=== PATIENT | female | born 1940 | race Caucasian/White ===

== ENCOUNTER → 2017-10-19 | Outpatient (CLI) | payer MEDICARE ==
[~2017-10-19] MED LIST: ATOR20TA9 PO; BENA5TAB3 PO; CYCL-259 PO; LEVO112T4 PO; LEVO88TA4 PO; NAPR-758 PO; NAPR220C2 PO; PANT40TA5 PO; [UNRECOGNIZED DRUG - CODE] PO
[2017-10-19 11:50] LABS: BASOPHILS # (AUTO) 0.03 x10^3/uL (0-0.1); BASOPHILS % (AUTO) 1 % (0-1); EOSINOPHILS # (AUTO) 0.19 x10^3/uL (0-0.4); EOSINOPHILS % (AUTO) 3 % (1-7); LYMPHOCYTES # (AUTO) 1.05 x10^3/uL (1-3.4); LYMPHOCYTES % (AUTO) 19 % (22-44); MD NO; MEAN CORPUSCULAR HEMOGLOBIN 32.3 pg (27.0-34.8); MEAN CORPUSCULAR HGB CONC 34.5 g/dL (32.4-35.8); MEAN CORPUSCULAR VOLUME 93.6 fL (80-100); MEAN PLATELET VOLUME 9.8 fL (7.4-10.4); MONOCYTES % (AUTO) 11 % (2-9); NEUTROPHILS # (AUTO) 3.83 x10^3/uL (1.8-6.8); NEUTROPHILS % (AUTO) 67 % (42-75); PLATELET COUNT 175 x10^3/uL (130-400); RED BLOOD COUNT 4.57 x10^6/uL (3.82-5.3); RED CELL DISTRIBUTION WIDTH 12.6 % (9.6-15.2)
[2017-10-19 11:52] LABS: MICROSCOPIC NOT IND
[2017-10-19 12:02] LABS: ALANINE AMINOTRANSFERASE 22 U/L (12-78); ALBUMIN 3.9 g/dL (3.4-5.0); ANION GAP 8 mmol/L (5-15); CALCIUM 9.3 mg/dL (8.5-10.1); CHLORIDE 106 mmol/L (98-107)
[2017-10-19 12:04] LABS: ALKALINE PHOSPHATASE 78 U/L (45-117); BILIRUBIN,TOTAL 0.5 mg/dL (0.2-1.0); CREATININE 0.99 mg/dL (0.55-1.02); TOTAL PROTEIN 7.4 g/dL (6.4-8.2)
[2017-10-19 12:09] LABS: CULTURE INDICATED? NO
== END | disposition home or self-care (01) ==
LOC: STAR 10:24
PROVIDERS: ATTEND Orthopaedic Surgery
DX: Z01.818 Encounter for other preprocedural examination (principal); M16.12 Unilateral primary osteoarthritis, left hip; I25.2 Old myocardial infarction
CPT/HCPCS: 36415; 80053; 81003; 85025; 87081; 93005

== ENCOUNTER 2017-10-29 05:32 | Inpatient (IN) | payer MEDICARE ==
[2017-10-19 15:07] VITALS: BP 130/72
[~2017-10-29] VITALS: Ht 160 cm; Wt 74.9 kg
[2017-10-29] MEDS ORDERED: LACTATED RINGERS 1,000 ML IV SCH (06:07)
[2017-10-29] MEDS ORDERED: AMOX875T PO (06:11)
[2017-10-29] MEDS ORDERED: TRANEXAMIC ACID 100 MG/ML, 10ML ONE ×2 (06:26)
[2017-10-29] MEDS ORDERED: ROPIvacaine/PF 0.2%, 20 ML ONE (06:26)
[2017-10-29] MEDS ORDERED: SODIUM CHLORIDE 0.9% 100 ML ONE (06:27)
[2017-10-29] MEDS ORDERED: VANCOMYCIN 1,000 MG ONE (06:27)
[2017-10-29] MEDS ORDERED: EPINEPHRINE 1 MG/ML, 1ML ONE (06:27)
[2017-10-29] MEDS ORDERED: LIDOCAINE-MPF 1%, 2ML INFIL ONE (06:30)
[2017-10-29] MEDS ORDERED: MIDAZOLAM 1 MG/ML, 2ML ONE (06:51)
[2017-10-29] MEDS ORDERED: FENTANYL PF 100 MCG/2ML ONE ×2 (06:51→08:58)
[2017-10-29] MEDS ORDERED: PROPOFOL 10 MG/ML, 20ML ONE (07:07)
[2017-10-29] MEDS ORDERED: ROCURONIUM 10MG/ML,5ML ONE (07:07)
[2017-10-29] MEDS ORDERED: DEXAMETHASONE 4 MG/ML, 1ML ONE ×2 (07:07)
[2017-10-29] MEDS ORDERED: LIDOCAINE 2% 100MG/5ML SYRINGE ONE (07:07)
[2017-10-29] MEDS ORDERED: FENTANYL PF 250 MCG/5ML ONE (07:24)
[2017-10-29] MEDS ORDERED: KETOROLAC 30 MG/1 ML ONE (07:34)
[2017-10-29] MEDS ORDERED: OXYcodone 5 MG/5 ML ORAL.SOL UDC PO PRN (08:00)
[2017-10-29] MEDS ORDERED: MEPERIDINE/PF 25MG/0.5ML IVPush PRN (08:00)
[2017-10-29] MEDS ORDERED: LABETALOL 5MG/ML, 20ML IV PRN (08:00)
[2017-10-29] MEDS ORDERED: PROMETHAZINE 25 MG/ML, 1ML IV PRN (08:00)
[2017-10-29] MEDS ORDERED: HALOPERIDOL 5 MG/ML IV PRN (08:00)
[2017-10-29] MEDS ORDERED: ACETAMINOPHEN 325 MG TABLET PO PRN (08:00)
[2017-10-29] MEDS ORDERED: hydrALAzine 20 MG/ML, 1ML IV PRN (08:00)
[2017-10-29] MEDS: D5%-0.45% NACL 1,000 ML IV SCH ×2 (08:44→20:08)
[2017-10-29] MEDS ORDERED: ACETAMINOPHEN 650 MG/20.3 ML UDC ONE (08:58)
[2017-10-29] MEDS ORDERED: OXYcodone 5 MG/5 ML ORAL.SOL UDC ONE (08:58)
[2017-10-29] MEDS: ACETAMINOPHEN 650 MG/20.3 ML UDC PO SCH ×4 (09:00→21:42)
[2017-10-29] MEDS ORDERED: PROMETHAZINE 12.5 MG SUPP PR PRN (09:00)
[2017-10-29] MEDS ORDERED: DIPHENHYDRAMINE 50 MG CAPSULE PO PRN (09:00)
[2017-10-29] MEDS ORDERED: ALUMINUM/MAG/SIMETHICONE 30 ML UDC PO PRN (09:00)
[2017-10-29] MEDS ORDERED: MAGNESIUM HYDROXIDE 8%, 30ML UDC PO PRN (09:00)
[2017-10-29] MEDS: DOCUSATE 100 MG CAPSULE PO SCH ×2 (09:00→21:42)
[2017-10-29] MEDS ORDERED: PROMETHAZINE 25 MG/ML, 1ML IM PRN (09:00)
[2017-10-29] MEDS ORDERED: DIAZEPAM 5 MG TABLET PO PRN (09:00)
[2017-10-29] MEDS ORDERED: ZOLPIDEM 5MG TABLET PO PRN (09:00)
[2017-10-29] MEDS: BENAZEPRIL 5 MG TABLET PO SCH (09:00)
[2017-10-29] MEDS ORDERED: OXYcodone IR 5MG TABLET PO PRN (09:00)
[2017-10-29] MEDS: FENTANYL PF 100 MCG/2ML IV PRN ×3 (09:00→09:12)
[2017-10-29] MEDS ORDERED: ONDANSETRON 2MG/ML, 2ML IV PRN (09:00)
[2017-10-29] MEDS ORDERED: HYDROmorphone 1 MG/ML, 1ML IV PRN (09:00)
[2017-10-29] MEDS ORDERED: SENNA/DOCUSATE TABLET PO PRN (09:00)
[2017-10-29] MEDS ORDERED: BISACODYL 10 MG SUPP PR PRN (09:00)
[2017-10-29] MEDS: MULTIVITAMINS/MINERALS TABLET PO SCH (09:00)
[2017-10-29] MEDS ORDERED: ONDANSETRON 4 MG TABLET PO PRN (09:00)
[2017-10-29] MEDS ORDERED: TRANEXAMIC ACID 1,000 MG in SODIUM CHLORIDE 0.9% 100 ML IVPB ONE ×2 (09:15→09:30)
[2017-10-29] MEDS ORDERED: HYDROmorphone 2 MG/ML, 1ML ONE (09:22)
[2017-10-29] MEDS: HYDROmorphone 1 MG/ML, 1ML IV PRN ×2 (09:24→09:31)
[2017-10-29] MEDS ORDERED: HALOPERIDOL 5 MG/ML ONE (09:42)
[2017-10-29 13:03] VITALS: BP 115/69
[2017-10-29] MEDS: CEFAZOLIN 2,000 MG in SODIUM CHLORIDE 0.9% 50 ML IVPB SCH ×2 (15:28→23:49)
[2017-10-29] MEDS ORDERED: PHENYLEPHRINE 10 MG/ML ONE (16:19)
[2017-10-29] MEDS ORDERED: ONDANSETRON 2MG/ML, 2ML ONE (16:19)
[2017-10-29] MEDS ORDERED: CEFAZOLIN 1,000 MG ONE (16:19)
[2017-10-29] MEDS: ASPIRIN 81 MG TABLET EC PO SCH (17:51)
[2017-10-29 20:00] VITALS: BP 125/69
[2017-10-29] MEDS: CYCLOBENZAPRINE 10 MG TABLET PO PRN (20:06)
[2017-10-29] MEDS ORDERED: ATORVASTATIN 20 MG TABLET PO SCH (21:00)
[2017-10-29 23:34] VITALS: BP 134/70
[2017-10-30] MEDS: CEFAZOLIN 2,000 MG in SODIUM CHLORIDE 0.9% 50 ML IVPB SCH (00:27)
[2017-10-30] MEDS: ACETAMINOPHEN 650 MG/20.3 ML UDC PO SCH ×2 (02:52→06:47)
[2017-10-30] MEDS: CYCLOBENZAPRINE 10 MG TABLET PO PRN (02:54)
[2017-10-30 03:19] VITALS: BP 121/72
[2017-10-30] MEDS: D5%-0.45% NACL 1,000 ML IV SCH (03:30)
[2017-10-30] MEDS: ASPIRIN 81 MG TABLET EC PO SCH (05:49)
[2017-10-30] MEDS ORDERED: DEXAMETHASONE 4 MG/ML, 1ML IVPush SCH (06:00)
[2017-10-30 06:27] VITALS: BP 113/61
[2017-10-30] MEDS ORDERED: LEVOTHYROXINE 112 MCG TABLET PO SCH (07:30)
[2017-10-30] MEDS ORDERED: PANTOPROZOLE 40MG TABLET PO SCH (07:30)
[2017-10-30 08:00] VITALS: BP 162/79
[2017-10-30] MEDS: BENAZEPRIL 5 MG TABLET PO SCH (08:11)
[2017-10-30] MEDS: MULTIVITAMINS/MINERALS TABLET PO SCH (08:11)
[2017-10-30] MEDS: DOCUSATE 100 MG CAPSULE PO SCH (08:11)
[2017-10-30] MEDS ORDERED: KETOROLAC 30 MG/1 ML IV SCH (09:00)
[2017-10-30] MEDS ORDERED: OXYC5TAB3 PO (09:43)
== END 2017-10-30 10:15 | disposition home or self-care (01) | DRG 470 ==
LOC: ORIP 05:32 → 4NOR 10:30 → DCLOUNGE 10-30 10:00
PROVIDERS: ADMIT Orthopaedic Surgery; ATTEND Orthopaedic Surgery
PROC: 0SRB06A Replacement of Left Hip Joint with Oxidized Zirconium on Polyethylene Synthetic Substitute, Uncemented, Open Approach (ICD-10-PCS; principal; 2017-10-29 07:30)
DX: M16.12 Unilateral primary osteoarthritis, left hip (principal); E03.9 Hypothyroidism, unspecified; I10 Essential (primary) hypertension; K21.9 Gastro-esophageal reflux disease without esophagitis; Z87.891 Personal history of nicotine dependence; Z88.0 Allergy status to penicillin
CPT/HCPCS: 36415; 72170; 85014; 85018; 86850; 86900; C1713; G0378; J0171; J0690; J1100; J1170; J1885; J2250; J2405; J2704; J2795; J3010; J3370; J3490; C1776; J1630; J2370; J7120